=== PATIENT | female | born 1970 ===

== ENCOUNTER 2019-02-20 16:23 | Emergency (ER) | payer BC ==
[~2019-02-20] VITALS: Ht 170.2 cm; Wt 68.0 kg
--- OUTSIDE RECORDS SUMMARY | 2019-02-20 16:25 | XMS REPORT | Summary of Care ---
Author Author [facility] Organization [facility] Address Unknown Phone Unavailable Encounter HQ Encntr_alias(FIN) [id number] Date(s): 05/20/18 - 05/20/18 [facility] [address] [place] [address]- Encounter Diagnosis Encounter for screening mammogram for malignant neoplasm of breast (Final) - 05/21/18 Discharge Disposition: Home or Self Care Attending Physician: Michele Caro MD Referring Physician: Michele Caro MD Vital Signs No data available for this section Problem List No data available for this section Allergies, Adverse Reactions, Alerts No data available for this section Medications No data available for this section Results No data available for this section Immunizations No data available for this section Procedures No data available for this section Social History No data available for this section Assessment and Plan No data available for this section
--- OUTSIDE RECORDS SUMMARY | 2019-02-20 16:25 | XMS REPORT | Summary of Care ---
Author Organization Unknown Address Unknown Phone Unavailable Encounter HQ Encntr_alishameka(RITCHIE) [id number] Date(s): 06/23/14 - 06/23/14 [facility] [address] Discharge Disposition: Home Physician Attending: Michele Caro MD Physician_Referring: Michele Caro MD Reason for Visit SCREENING Problem List No data available for this section Allergies, Adverse Reactions, Alerts No data available for this section Medications No data available for this section Medications Administered During Your Visit No data available for this section Immunizations No data available for this section
--- OUTSIDE RECORDS SUMMARY | 2019-02-20 16:25 | XMS REPORT | Summary of Care ---
Author Author [facility] Organization [facility] Address Unknown Phone Unavailable Encounter HQ Encntr_alishameka(RITCHIE) [id number] Date(s): 10/23/16 - 10/23/16 [facility] [address] [place] [address]- [phone] Discharge Disposition: Home or Self Care Attending [...]
--- OUTSIDE RECORDS SUMMARY | 2019-02-20 16:25 | XMS REPORT | Continuity of Care Document ---
Author Author [facility] Organization [facility] Address Unknown Phone Unavailable Care Team Providers Care Regional Project Manager Name Role Phone [facility] [employer] Unavailable Unavailable Problems Problem Status Onset Date Classification Date Reported Comments Source Encounter for screening mammogram for malignant neoplasm of breast 05/22/2018 12/07/2018 [facility] SCREENINGNO PAIN,LUMPS OR DC Active 05/06/2018 [facility] ROUTINE Active 08/31/2016 [facility] 626.2 EXCESS, MENSTRUATION Active 06/09/2014 [facility] SCREENING Active 06/09/2014 [facility] Medications No Data Provided for This Section Allergies, Adverse Reactions, Alerts No Known Medication Allergies Immunizations No Data Provided for This Section Results No Data Provided for This Section Pathology Reports No Data Provided for This Section Diagnostic Reports Report Value Date Source Breast Mammo Scrn STEPHANY incl CAD MA BILATERAL DIGITAL SCREENING MAMMOGRAM WITH CAD: 05/20/2018 CLINICAL: /Screen. Current study was evaluated with a Computer Aided Detection (CAD) system. COMPARISON:Comparison is made to exams dated: 10/23/2016 mammogram, 06/23/2014 mammogram, 06/23/2014 mammogram, and 03/18/2012 mammogram - [facility]. TECHNIQUE: Mammographic views were obtained using digital acquisition. [employer] Version 1.3 was utilized for computer aided detection. FINDINGS: The tissue of both breasts is heterogeneously dense, which could obscure detection of small masses. Bilateral saline subpectoral breast implants are noted and imaged with routine and implant displaced views. Bilateral breast implants are stable and intact. No significant masses, calcifications, or other findings are seen in either breast. There has been no significant interval change. IMPRESSION: BENIGN RECOMMENDATION:There is no mammographic evidence of malignancy. A 1 year screening mammogram is recommended.(05/21/2019) This exam was interpreted at [id number] for [facility]. Suresh somers/james:05/20/2018 08:58:05 Range Conservationist(s): Jovita Jackson, [facility] letter sent: BI-RADS 1/2 Mammogram BI-RADS: 2 Benign 05/20/2018 [facility] Breast Mammo Scrn STEPHANY incl CAD MA - BREAST MAMMO SCRN STEPHANY INCL CAD MA BILATERAL DIGITAL SCREENING MAMMOGRAM WITH CAD: 10/23/2016 CLINICAL: Routine. Current study was evaluated with a Computer Aided Detection (CAD) system. Comparison is made to exams dated: 06/23/2014 mammogram and 03/18/2012 mammogram - [facility]. The tissue of both breasts is heterogeneously dense, which could obscure detection of small masses. Bilateral saline subpectoral breast implants are noted and imaged with routine and implant displaced views. Bilateral breast implants are stable and intact. No significant masses, calcifications, or other findings are seen in either breast. There has been no significant interval change. IMPRESSION: BENIGN There is no mammographic evidence of malignancy. A 1 year screening mammogram is recommended. Suresh somers/penrad:10/24/2016 08:15:44 Range Conservationist: Adele Johnson, [facility] This exam was dictated and interpreted by [id number] for [facility]. letter sent: Normal exam Mammogram BI-RADS: 2 Benign 10/23/2016 [facility] Pelvis w Pelvis Transvaginal US HISTORY: Postmenopausal bleeding. Transabdominal and transvaginal pelvic ultrasound exam. Transabdominal imaging demonstrates uterus of 8 x 3 x 2.8 cm. Endometrium 4 mm. Right ovary 2.6 x 1.6 x 1.3 cm. Left ovary 1.9 x 1.2 x 1.3 cm. Transvaginal imaging demonstrates endometrial thickness up to 6 mm. Small endometrial fluid is noted. IMPRESSION: Endometrium thickness up to 6 mm transvaginally. Small endometrial fluid. No additional sonographic findings. SL:13 06/09/2014 [facility] Consultation Notes No Data Provided for This Section Discharge Summaries No Data Provided for This Section History and Physicals No Data Provided for This Section Vital Signs No Data Provided for This Section Encounters Location Location Details Encounter Type Encounter Number Reason For Visit Attending Provider ADM Date DC Date Status Source [facility] Outpatient [id number] Michele Caro 06/09/2014 06/10/2014 [facility] Outpatient [id number] Michele Caro 06/23/2014 06/24/2014 [facility] Outpatient [id number] Michele Gordo 10/23/2016 10/24/2016 [facility] Outpatient [id number] Michele Caro 05/20/2018 05/21/2018 [facility] Procedures No Data Provided for This Section Assessment and Plan No Data Provided for This Section Plan of Care No Data Provided for This Section Social History Social History Date Source No data available for this section 05/21/2018 [facility] Family History No Data Provided for This Section Advance Directives No Data Provided for This Section Functional Status No Data Provided for This Section
--- OUTSIDE RECORDS SUMMARY | 2019-02-20 16:25 | XMS REPORT | Summary of Care ---
Author Organization Unknown Address Unknown Phone Unavailable Encounter HQ Encntr_zbigniew(RITCHIE) [id number] Date(s): 06/09/14 - 06/09/14 [facility] [address] [place], [place] [id number] [place] [address] Discharge Disposition: Home Physician Attending: Michele Caro MD Physician_Referring: Michele Caro MD Reason for Visit 626.2 EXCESS, MENSTRUATION Problem List No data available for this section Allergies, Adverse Reactions, Alerts No data available for this section Medications No data available for this section Medications Administered During Your Visit No data available for this section Immunizations No data available for this section
[2019-02-20] MEDS ORDERED: HYDROCODONE/APAP 10MG-325MG TAB PO NR (16:30)
--- NOTE | 2019-02-20 17:34 | Diagnostic Imaging Report ---
Right elbow, 3 views. History: Trauma. Findings: There is severe posterior soft tissue swelling with a joint effusion. Bone mineralization is normal. A comminuted fracture of the olecranon is present with significant posterior superior displacement of the proximal fragment. Remaining bones are intact. There are no lytic or sclerotic lesions. The joint spaces are within normal limits. IMPRESSION: Comminuted olecranon fracture. Signed by: Yusuf Cummins on 02/20/2019 5:31 PM
== END 2019-02-20 18:02 | disposition home or self-care (01) ==
LOC: ER 16:23
DX: S52.021A Displaced fracture of olecranon process without intraarticular extension of right ulna, initial encounter for closed fracture (principal); W01.0XXA Fall on same level from slipping, tripping and stumbling without subsequent striking against object, initial encounter; Y99.0 Civilian activity done for income or pay
CPT/HCPCS: 99283

== ENCOUNTER 2024-09-09 08:11 | Emergency (ER) | payer BC, OTHER ==
[~2024-09-09] VITALS: Ht 172.7 cm; Wt 81.6 kg
[2024-09-09 08:23] VITALS: PULSE 80; RESP 16; TEMP 97.9; O2SAT 99
[2024-09-09] MEDS: IBUPROFEN 400 MG TAB PO STA (08:47)
== END 2024-09-09 08:46 | disposition home or self-care (01) ==
LOC: FSED 08:25
DX: S00.83XA Contusion of other part of head, initial encounter (principal); R51.9 Headache, unspecified; R42 Dizziness and giddiness; W01.198A Fall on same level from slipping, tripping and stumbling with subsequent striking against other object, initial encounter; Y93.01 Activity, walking, marching and hiking; Y92.89 Other specified places as the place of occurrence of the external cause
CPT/HCPCS: 99283